=== PATIENT | male | born 1975 | race Caucasian/White ===

== ENCOUNTER 2017-06-09 10:20 | Emergency (ER) | payer SELFPAY ==
[~2017-06-09] VITALS: Ht 172.7 cm; Wt 87.1 kg
[2017-06-09] MEDS ORDERED: PEN-VEE K,VEET500 MG PO (11:29)
[2017-06-09 11:36] VITALS: BP 127/83
== END 2017-06-09 11:50 | disposition home or self-care (01) ==
LOC: EME 10:20
DX: K08.89 Other specified disorders of teeth and supporting structures (principal); F17.200 Nicotine dependence, unspecified, uncomplicated; Z88.1 Allergy status to other antibiotic agents
CPT/HCPCS: 99281; 99282